=== PATIENT | male | born 1970 | race Caucasian/White ===

== ENCOUNTER 2018-03-07 13:48 | Emergency (ER) | payer SELFPAY ==
[2018-03-07] MEDS ORDERED: Sodium Chloride 0.9% 1,000 ML IV ONE (14:00)
[2018-03-07] MEDS ORDERED: Sodium Chloride 0.9% 10 ML Syringe FLUSH PRN (14:00)
[2018-03-07] MEDS ORDERED: Sodium Chloride 0.9% 2.5 ML Syringe FLUSH PRN (14:00)
[2018-03-07] MEDS ORDERED: Ketorolac 30 MG/ML SDV IVPUSH ONE (15:32)
--- NOTE | 2018-03-07 16:05 | CT ---
CT of the abdomen and pelvis without contrast. HISTORY: Hematuria TECHNIQUE: Axial CT images were obtained of the abdomen and pelvis without contrast. Coronal and sagi ttal reconstructions obtained. FINDINGS: The lung bases are clear, no pleural effusion. The liver, spleen, adrenal glands, and pancreas appear unremarkable for noncontrast examination. The gallbladder appears normal. There is no bulky retroperitoneal lymphadenopathy. No abdominal ascites. There is a 2 mm obstructing stone at the right ureterovesicular junction with mild proximal hydroneph rosis and perirenal stranding. There is a 2.3 cm left renal nodule posteriorly. The large and small bowel are normal in caliber without evidence of obstruction. Appendectomy. There is no bulky pelvic lymphadenopathy. No free fluid. No free air. The urinary bladder appears normal. 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 Degenerative changes within the hips. IMPRESSION: 1. There is a 2 mm obstructing stone within the right ureteropelvic junction with mild proximal hydro nephrosis. 2. Mildly hyperdense 2.3 cm left renal nodule. Possibly a hyperdense cyst, correlation with a postcon trast CT or ultrasound may be beneficial.
--- NOTE | 2018-03-07 16:31 | EDM.PDOC ---
ED HPI GENERAL MEDICAL PROBLEM - General Chief Complaint: Abdominal Pain Stated Complaint: ABDOMINAL PAIN Time Seen by Provider: 03/07/18 14:00 Source of Information: Reports: Patient History Limitations: Reports: No Limitations - History of Present Illness INITIAL COMMENTS - FREE TEXT/NARRATIVE: History of present illness: []Patient's head 2 days of right upper abdominal pain that is intermittent and sharp is not had any vomiting, fevers or chills. His urine is noted to be dark and he thinks it started 2 days ago. Patient has had an appendicitis but he has his gallbladder. Review of systems: As per history of present illness and below otherwise all systems reviewed and negative. Past medical history: As per history of present illness and as reviewed below otherwise noncontributory. Surgical history: As per history of present illness and as reviewed below otherwise noncontributory. Social history: No reported history of drug or alcohol abuse. Family history: As per history of present illness and as reviewed below otherwise noncontributory. Physical exam: General: Well developed, well nourished in NAD HEENT: Atraumatic, normocephalic, pupils reactive, negative for conjunctival pallor or scleral icterus, mucous membranes moist, throat clear, neck supple, nontender, trachea midline. Lungs: Clear to auscultation, breath sounds equal bilaterally, chest nontender. Heart: S1S2, regular, negative for clicks, rubs, or JVD. Abdomen: Soft, nondistended, nontender. Negative for masses or hepatosplenomegaly. Negative for costovertebral tenderness. Pelvis: Stable nontender. Genitourinary: Deferred. Rectal: Deferred. Extremities: Atraumatic, negative for cords or calf pain. Neurovascular unremarkable. Neuro: Awake, alert, oriented. Cranial nerves II through XII unremarkable. Cerebellum unremarkable. Motor and sensory unremarkable throughout. Exam nonfocal. Diagnostics: []CBC shows a white count elevated at 12,000 chemistries normal except BUN and creatinine is 28 1.5, UA shows too numerous to count RBCs, 8-10 white cells, CT scan shows 2 mm obstructing stone at the UPJ with mild proximal hydronephrosis, was also an incidental 2.3 cm left adrenal nodule is hyperdense follow-up suggested Therapeutics: []IV hydrated 1 L, Toradol with alleviation of pain Flomax given Impression: []Right Ureterolithiasis, UTI, left renal nodule Plan: []Flomax, tramadol, Cipro prescribed patients to follow-up with his primary doctor or urologist in [place] within a week or return to any ER if symptoms worsen or change Definitive disposition and diagnosis as appropriate pending reevaluation and review of above. abdominal Pain Score (Numeric/FACES): 8 - Related Data Allergies Allergy/AdvReac Type Severity Reaction Status Date / Time No Known Allergies Allergy Verified 03/07/18 14:03 Home Meds: Home Meds Ciprofloxacin HCl [Cipro] 500 mg PO BID #20 tablet 03/07/18 [Rx] Tamsulosin HCl [Flomax] 0.4 mg PO DAILY #14 cap.er.24h 03/07/18 [Rx] traMADol HCl [Tramadol HCl] 50 mg PO Q6H PRN #16 tablet 03/07/18 [Rx] Past Medical History HEENT History: Reports: None Cardiovascular History: Reports: None Respiratory History: Reports: None Gastrointestinal History: Reports: None Genitourinary History: Reports: None Musculoskeletal History: Reports: None Neurological History: Reports: None Psychiatric History: Reports: None Endocrine/Metabolic History: Reports: None Hematologic History: Reports: None Immunologic History: Reports: None Oncologic (Cancer) History: Reports: None Dermatologic History: Reports: None - Past Surgical History Head Surgeries/Procedures: Reports: None HEENT Surgical History: Reports: Eye Surgery Cardiovascular Surgical History: Reports: None Respiratory Surgical History: Reports: None GI Surgical History: Reports: Appendectomy Male Surgical History: Reports: None Endocrine Surgical History: Reports: None Neurological Surgical History: Reports: None Musculoskeletal Surgical History: Reports: None Oncologic Surgical History: Reports: None Dermatological Surgical History: Reports: None Social & Family History - Family History Family Medical History: Noncontributory - Tobacco Use Smoking Status *Q: Current Every Day Smoker Years of Tobacco use: 16 Packs/Tins Daily: 0.5 - Caffeine Use Caffeine Use: Reports: Soda - Recreational Drug Use Recreational Drug Use: No ED ROS GENERAL - Review of Systems Review Of Systems: See Below (See history of present illness) ED EXAM, GI/ABD - Physical Exam Exam: See Below (See history of present illness) Course - Vital Signs Last Recorded V/S: Last Vital Signs Temp 98.7 F 03/07/18 16:07 Pulse 70 03/07/18 16:07 Resp 16 03/07/18 16:07 BP 140/96 H 03/07/18 16:07 Pulse Ox 97 03/07/18 16:07 - Orders/Labs/Meds Orders: Active Orders 24 hr Category Date Time Status UA W/MICROSCOPIC [URIN] Stat Lab 03/07/18 14:08 Ordered Sodium Chloride 0.9% [Saline Flush] Med 03/07/18 14:00 Active 10 ml FLUSH ASDIRECTED PRN Sodium Chloride 0.9% [Saline Flush] Med 03/07/18 14:00 Active 2.5 ml FLUSH ASDIRECTED PRN Saline Lock Insert [OM.PC] Stat Oth 03/07/18 14:00 Ordered Medication Orders Sodium Chloride (Saline Flush) 10 ml FLUSH ASDIRECTED PRN PRN Reason: Keep Vein Open Sodium Chloride (Saline Flush) 2.5 ml FLUSH ASDIRECTED PRN PRN Reason: Keep Vein Open Labs: Laboratory Tests 03/07/18 03/07/18 03/07/18 Range/Units 14:08 14:15 14:15 WBC 12.52 H (4.0-11.0) K/uL RBC 5.21 (4.50-5.90) M/uL Hgb 15.4 (13.0-17.0) g/dL Hct 44.7 (38.0-50.0) % MCV 85.8 (80.0-98.0) fL MCH 29.6 (27.0-32.0) pg MCHC 34.5 (31.0-37.0) g/dL RDW Std Deviation 43.2 (28.0-62.0) fl RDW Coeff of Gini 14 (11.0-15.0) % Plt Count 260 (150-400) K/uL MPV 10.60 (7.40-12.00) fL Neut % (Auto) 74.7 (48.0-80.0) % Lymph % (Auto) 17.1 (16.0-40.0) % [place] % (Auto) 7.3 (0.0-15.0) % Eos % (Auto) 0.7 (0.0-7.0) % Baso % (Auto) 0.2 (0.0-1.5) % Neut # (Auto) 9.4 H (1.4-5.7) K/uL Lymph # (Auto) 2.1 (0.6-2.4) K/uL [place] # (Auto) 0.9 H (0.0-0.8) K/uL Eos # (Auto) 0.1 (0.0-0.7) K/uL Baso # (Auto) 0.0 (0.0-0.1) K/uL Nucleated RBC % 0.0 /100WBC Nucleated RBCs # 0 K/uL Sodium 139 (136-148) mmol/L Potassium 4.1 (3.5-5.1) mmol/L Chloride 102 (98-107) mmol/L Carbon Dioxide 26.5 (21.0-32.0) mmol/L BUN 28 H (7.0-18.0) mg/dL Creatinine 1.5 H (0.8-1.3) mg/dL Est Cr Clr Drug Dosing 64.84 mL/min Estimated GFR (MDRD) 50.2 ml/min Glucose 94 (74-106) mg/dL Calcium 9.1 (8.5-10.1) mg/dL Total Bilirubin 0.7 (0.2-1.0) mg/dL AST 16 (15-37) IU/L ALT 28 (14-63) IU/L Alkaline Phosphatase 97 (46-116) U/L Total Protein 7.2 (6.4-8.2) g/dL Albumin 3.7 (3.4-5.0) g/dL Globulin 3.5 (2.0-3.5) g/dL Albumin/Globulin Ratio 1.1 L (1.3-2.8) Lipase 247 (73-393) U/L Urine Color BROWN Urine Appearance CLOUDY Urine pH 7.0 (5.0-8.0) Ur Specific [place] 1.020 (1.001-1.035) Urine Protein 100 (NEGATIVE) mg/dL Urine Glucose (UA) NEGATIVE (NEGATIVE) mg/dL Urine Ketones NEGATIVE (NEGATIVE) mg/dL Urine Occult Blood LARGE H (NEGATIVE) Urine Nitrite NEGATIVE (NEGATIVE) Urine Bilirubin SMALL H (NEGATIVE) Urine Ictotest NEGATIVE Urine Urobilinogen 0.2 (<2.0) EU/dL Ur Leukocyte Esterase SMALL (NEGATIVE) Urine RBC TOO NUMEROUS TO CT (0-2/HPF) Urine WBC 8-10 (0-5/HPF) Ur Epithelial Cells FEW (NONE-FEW) Urine Bacteria 1+ H (NEGATIVE) Meds: Medications Generic Name Dose Route Start Last Admin Trade Name Freabdulkadir PRN Reason Stop Dose Admin Sodium Chloride 10 ml 03/07/18 14:00 Saline Flush FLUSH ASDIRECTED PRN Keep Vein Open Sodium Chloride 2.5 ml 03/07/18 14:00 Saline Flush FLUSH ASDIRECTED PRN Keep Vein Open Discontinued Medications Generic Name Dose Route Start Last Admin Trade Name Freabdulkadir PRN Reason Stop Dose Admin Sodium Chloride 1,000 mls @ 999 mls/hr 03/07/18 14:00 03/07/18 14:19 Normal Saline IV 03/07/18 15:00 999 mls/hr .Bolus ONE Administration Ketorolac Tromethamine 30 mg 03/07/18 15:32 03/07/18 16:04 Toradol IVPUSH 03/07/18 15:33 30 mg ONETIME ONE Administration Departure - Departure Time of Disposition: 16:41 Disposition: Home, Self-Care 01 Condition: Good Clinical Impression: Ureterolithiasis, Nodule of kidney - Discharge Information Prescriptions: Ciprofloxacin HCl [Cipro] 500 mg PO BID #20 tablet Tamsulosin HCl [Flomax] 0.4 mg PO DAILY #14 cap.er.24h traMADol HCl [Tramadol HCl] 50 mg PO Q6H PRN #16 tablet PRN Reason: Pain Referrals: PCP,None [Primary Care Provider] - Forms: ED Department Discharge Additional Instructions: The following information is given to patients seen in the emergency department who are being discharged to home. This information is to outline your options for follow-up care. We provide all patients seen in our emergency department with a follow-up referral. The need for follow-up, as well as the timing and circumstances, are variable depending upon the specifics of your emergency department visit. If you don't have a primary care physician on staff, we will provide you with a referral. We always advise you to contact your personal physician following an emergency department visit to inform them of the circumstance of the visit and for follow-up with them and/or the need for any referrals to a consulting specialist. The emergency department will also refer you to a specialist when appropriate. This referral assures that you have the opportunity for follow-up care with a specialist. All of these measure are taken in an effort to provide you with optimal care, which includes your follow-up. Under all circumstances we always encourage you to contact your private physician who remains a resource for coordinating your care. When calling for follow-up care, please make the office aware that this follow-up is from your recent emergency room visit. If for any reason you are refused follow-up, please contact the [facility] Emergency Department at and asked to speak to the emergency department charge nurse. Take Cipro, Flomax and tramadol as needed for pain increase fluids and follow- up with primary care or urology when you get to [place] return to ER if symptoms worsen or change. - My Orders Last 24 Hours: My Active Orders 03/07/18 14:00 Sodium Chloride 0.9% [Saline Flush] 10 ml FLUSH ASDIRECTED PRN Sodium Chloride 0.9% [Saline Flush] 2.5 ml FLUSH ASDIRECTED PRN Saline Lock Insert [OM.PC] Stat 03/07/18 14:08 UA W/MICROSCOPIC [URIN] Stat - Assessment/Plan Last 24 Hours: My Active Orders 03/07/18 14:00 Sodium Chloride 0.9% [Saline Flush] 10 ml FLUSH ASDIRECTED PRN Sodium Chloride 0.9% [Saline Flush] 2.5 ml FLUSH ASDIRECTED PRN Saline Lock Insert [OM.PC] Stat 03/07/18 14:08 UA W/MICROSCOPIC [URIN] Stat
== END 2018-03-07 17:05 | disposition home or self-care (01) ==
LOC: MW.ED 13:48
DX: N13.2 Hydronephrosis with renal and ureteral calculous obstruction (principal); N28.89 Other specified disorders of kidney and ureter; F17.210 Nicotine dependence, cigarettes, uncomplicated; Z79.899 Other long term (current) drug therapy
CPT/HCPCS: 36415; 74176; 80053; 81001; 83690; 85025; 96361; 96374; 99284; J1885; J7040

== ENCOUNTER 2021-07-12 23:30 | Emergency (ER) | payer SELFPAY ==
[2021-07-13 00:19] LABS: BLOOD UREA NITROGEN,BUN 21 mg/dL (7.0-18.0); CARBON DIOXIDE,CO2 25.9 mmol/L (21.0-32.0); CHLORIDE,CL 104 mmol/L (98-107); GLUCOSE RANDOM 174 mg/dL (74-106); POTASSIUM,K 3.7 mmol/L (3.5-5.1); SODIUM,NA 142 mmol/L (136-148)
--- NOTE | 2021-07-13 00:47 | CR ---
INDICATION: Shortness of breath. COMPARISON: None. TECHNIQUE: Single portable AP view of the chest. FINDINGS: There is severe hypoventilatory changes. Questionable bilateral patchy airspace disease. No pneumothorax or significant effusion. Cardiac silhouette is enlarged, likely accentuated by AP technique. No acute osseous findings. IMPRESSION: Severe hypoventilatory changes. Questionable bilateral patchy airspace disease, not optimally imaged. Dictated by Adonis Miranda MD @ 07/13/2021 12:46:43 AM Dictated by: Adonis Miranda MD @ 07/13/2021 00:46:53 (Electronically Signed)
[2021-07-13] MEDS ORDERED: Iopamidol 755 MG/ML 500 ML Multipack Bottle IVPUSH ONE (01:03)
--- NOTE | 2021-07-13 01:37 | CT ---
INDICATION: Shortness of breath and recent travel. TECHNIQUE: CT chest PE was acquired with 100 cc Isovue 370 intravenous contrast. COMPARISON: None. FINDINGS: Heart and vasculature: Inadequate opacification of the pulmonary artery. Examination is considered nondiagnostic. No proximal emboli seen. Thoracic aorta is normal in caliber with mild atherosclerotic calcification. No pericardial effusion. Lungs and pleural: No pleural effusion or pneumothorax. Minimal discoid atelectasis right middle lobe. Mild motion with slight soft tissue thickening around a left lower lobe posterior segment bronchus (402, 121). Lymph nodes/mediastinum: Left hilar lymph nodes measure up to 13 millimeters right infrahilar lymph nodes measures 12 millimeters. Subcarinal lymph nodes measure 11 millimeters. Chest wall: No masses. Upper abdomen: Normal. Bones: Unremarkable for age. IMPRESSION: 1. Nondiagnostic examination for the detection of pulmonary emboli secondary to inadequate opacification of the pulmonary vasculature. No proximal pulmonary embolus seen. 2. Mild mediastinal and hilar adenopathy. Differential is broad and includes infectious, inflammatory and neoplastic etiologies. 3. Minimal soft tissue thickening around a left lower lobe posterior segment bronchus. Suspect this represents either some bronchial wall thickening such as from bronchitis or alternatively a distal lymph node. Follow-up CT scan can be considered in 3 months to assess for resolution. Please note that all CT scans at this facility use dose modulation, iterative reconstruction, and/or weight-based dosing when appropriate to reduce radiation dose to as low as reasonably achievable. Dictated by Dorian Mcdaniel MD @ 07/13/2021 1:36:36 AM (Electronically Signed)
--- NOTE | 2021-07-13 01:44 | EDM.PDOC ---
ED HPI GENERAL MEDICAL PROBLEM - General Chief Complaint: Respiratory Problem Stated Complaint: LOW BP, SHORT OF BREATH, LIPS TURNING BLUE Time Seen by Provider: 07/12/21 23:36 - History of Present Illness INITIAL COMMENTS - FREE TEXT/NARRATIVE: CHIEF COMPLAINT(S): "Blood pressure was not right." HISTORY OF PRESENT ILLNESS: This is a 51-year-old man without any reported past medical history who comes to the emergency department with a chief complaint of "blood pressure was not right." The patient states that he was at home and states that his blood pressure was low. He states that his niece brought him into the emergency department. The niece who is at bedside provided the following history: She states that the patient was sitting there comfortably when he put his head down became cold, clammy and stated he was very diaphoretic and that his lips turned blue. She states that one of his family members is a RN and and they checked his blood pressure and it was 82/40. She states that since he is arrived from [place] he has appeared short of breath and had some labored breathing but other than that he has not complained everything. The patient states that he is not experiencing any chest pain, lower extremity edema, cough, fever or chills. He states that the only other abnormality is that for the last 6 months he has been having bright red vomiting blood every 2 to 3 days which resolves on its own. He states that he has not had this evaluated. He states that he did not have any vomiting of blood today. He states that his mother had esophageal cancer so he was afraid to come in for that. In addition he states that he has had some dyspnea after Covid which she has had in the past. He states that he does not know if he has been reexposed to Covid. He denies any history of aortic aneurysm. REVIEW OF SYSTEMS: Constitutional: Positive for diaphoresis. Denies fever, chills. Eyes: Denies eye pain Ears, Nose, Mouth, & Throat: Denies earache Cardiovascular: Positive for perioral cyanosis and low blood pressure. Denies chest pain Respiratory: Positive for shortness of breath Gastrointestinal: Positive for hematemesis. Denies abdominal pain, nausea, diarrhea, hematochezia, melena Genitourinary: Denies hematuria Skin:Denies a rash MSK: Denies joint pain Neurological: Denies blurred vision, numbness, tingling, weakness Psychiatric: Denies depression PAST MEDICAL HISTORY: As per history of present illness and as reviewed below otherwise noncontributory. SURGICAL HISTORY: As per history of present illness and as reviewed below otherwise noncontributory. SOCIAL HISTORY: As per history of present illness and as reviewed below otherwise noncontributory. FAMILY HISTORY: As per history of present illness and as reviewed below otherwise noncontributory. EXAMINATION OF ORGAN SYSTEMS/BODY AREAS: Constitutional: Blood pressure was 107/67, heart rate 96, respiratory rate 20 with an oxygen saturation 97% on room air. Temperature 36.3 General: Middle-aged man who does not appear to be in acute distress Psychiatric: Appropriate mood and affect. Eyes: No scleral icterus or conjunctival erythema conjunctivae is not pale. ENMT: Moist mucous membranes. No pharyngeal erythema Cardiovascular: Regular, rate, and rhythm. No gallops, murmurs, or rubs. Bilateral upper extremity pulses and lower extremity symmetric and intact. No peripheral edema. No JVD. Respiratory: Lungs clear to auscultation bilaterally. No wheezes, rales, or rhonchi. Gastrointestinal: Soft, non-tender, non-distended. Normoactive bowel sounds no rebound or guarding Genitourinary: No suprapubic tenderness Musculoskeletal: Normal range of motion. Skin: No lesions or abrasions. Neurological: Alert, GCS 15 MEDICAL DECISION MAKING AND COURSE IN THE ED WITH INTERPRETATION/REVIEW OF DIAGNOSTIC STUDIES: This is a 51-year-old and without any reported past medical history who comes to the emergency department with acute episode of diaphoresis with the patient did have perioral cyanosis which was reported in a brief hypotensive episode who has been experiencing labored breathing and reported bright red bloody emesis intermittently for the last 6 months. The patient is mildly tachycardic and given his dyspnea will obtain a CT angiogram of the chest to evaluate for pulmonary embolism. At this time it is hard to differentiate if this is hemoptysis or hematemesis. Either way the patient has not had any vomiting today. The patient does not look pale therefore I do not believe any blood transfusion is indicated. Given that this sounds sort of presyncopal we will obtain a cardiac work-up. EKG was obtained which did not reveal any acute signs of ischemia. Cardiac monitoring at this time did reveal sinus rhythm and pulse oximetry with good waveform was 94 to 95% on room air. DDx: ACS, pneumonia, pulmonary embolism, COVID-19 Laboratory: CBC is unremarkable. D-dimer is normal. BMP reveals elevated BUN at 21 and a creatinine of 1.9. Hyperglycemia at 174. Hypermagnesemia at 2.5. AST ALT and total bilirubin are normal. First troponin is negative. The radiological images were viewed by myself along with reading the report from the radiologist. Chest x-ray reveals severe hypoventilatory changes. Questionable bilateral patchy airspace disease not optimal imaging. CT angiogram of the chest is nondiagnostic exam however there is no proximal pulmonary embolism. There is mild mediastinal and hilar adenopathy. There is minimal soft tissue thickening around the left lower lobe posterior segment bronchus. Suspect this represents either some bronchial wall thickening such as from bronchitis or distal lymph node. After labs and initial imaging I did reevaluate the patient. The patient's vitals continue to remain normal and the patient was acting appropriately. I did discuss that we would like to obtain a repeat troponin. He was amenable to this plan. We did obtain a pre and post void residual given the elevated BUN and creatinine. There was no evidence of obstruction. Laboratory: Repeat troponin is negative. After repeat troponin I did discuss results with the patient. At this time I do believe the patient requires multiple follow-up visits. I did discuss the importance of following up with general surgery for endoscopy and colonoscopy given his reported vomiting of blood. The patient's hemoglobin is normal I do not believe any emergent work-up is needed. In addition I did discuss that he should follow-up with cardiology as the explanation of his episode today did sound presyncopal. Even though the patient does not have any chest pain the patient is still low risk given his age and without any risk factors known. In addition I would like him to follow-up with a primary care physician. He was amenable to this plan. I did discuss strict return precautions with the patient. He was amenable to discharge and had no further questions. Heart Score History: Moderately Suspicious (1) ECG: Normal (0) Age: 45-64 (1) Risk Factors: No known risk factors (0) Initial Troponin: </= normal limit (0) Total Score: 2 DISPOSITION: The patient was discharged home in stable condition. The patient will follow up with cardiology, general surgery and primary care physician CONDITION: Fair PROCEDURES: Cardiac monitoring interpretation, pulse oximetry interpretation FINAL IMPRESSION(S)/DIAGNOSES: 1. Acute on chronic hematemesis 2. Acute presyncope Anthony Laboy M.D. - Related Data Allergies Allergy/AdvReac Type Severity Reaction Status Date / Time No Known Allergies Allergy Verified 07/12/21 23:43 Home Meds: Home Meds . [No Known Home Meds] 07/12/21 [History] Past Medical History HEENT History: Reports: None Cardiovascular History: Reports: None Respiratory History: Reports: None Gastrointestinal History: Reports: None Genitourinary History: Reports: None Musculoskeletal History: Reports: None Neurological History: Reports: None Psychiatric History: Reports: None Endocrine/Metabolic History: Reports: None Hematologic History: Reports: None Immunologic History: Reports: None Oncologic (Cancer) History: Reports: None Dermatologic History: Reports: None - Past Surgical History Head Surgeries/Procedures: Reports: None HEENT Surgical History: Reports: Eye Surgery Cardiovascular Surgical History: Reports: None Respiratory Surgical History: Reports: None GI Surgical History: Reports: Appendectomy Male Surgical History: Reports: None Endocrine Surgical History: Reports: None Neurological Surgical History: Reports: None Musculoskeletal Surgical History: Reports: None Oncologic Surgical History: Reports: None Dermatological Surgical History: Reports: None Social & Family History - Family History Family Medical History: No Pertinent Family History - Caffeine Use Caffeine Use: Reports: Soda - Recreational Drug Use Recreational Drug Use: No ED ROS GENERAL - Review of Systems Review Of Systems: See Below ED EXAM, GENERAL - Physical Exam Exam: See Below Course - Vital Signs Last Recorded V/S: Last Vital Signs Temp 36.3 C 07/12/21 23:39 Pulse 82 07/13/21 05:00 Resp 18 07/13/21 05:00 BP 132/64 07/13/21 05:00 Pulse Ox 95 07/13/21 05:00 - Orders/Labs/Meds Labs: Laboratory Tests 07/12/21 07/12/21 07/12/21 Range/Units 00:01 23:52 23:52 WBC 8.70 (4.0-11.0) K/uL RBC 4.91 (4.50-5.90) M/uL Hgb 14.8 (13.0-17.0) g/dL Hct 43.9 (38.0-50.0) % MCV 89.4 (80.0-98.0) fL MCH 30.1 (27.0-32.0) pg MCHC 33.7 (31.0-37.0) g/dL RDW Std Deviation 49.2 (28.0-62.0) fl RDW Coeff of Gini 15 (11.0-15.0) % Plt Count 286 (150-400) K/uL MPV 10.80 (7.40-12.00) fL Neut % (Auto) 72.5 (48.0-80.0) % Lymph % (Auto) 17.2 (16.0-40.0) % Dickens % (Auto) 7.6 (0.0-15.0) % Eos % (Auto) 2.5 (0.0-7.0) % Baso % (Auto) 0.2 (0.0-1.5) % Neut # (Auto) 6.3 H (1.4-5.7) K/uL Lymph # (Auto) 1.5 (0.6-2.4) K/uL Dickens # (Auto) 0.7 (0.0-0.8) K/uL Eos # (Auto) 0.2 (0.0-0.7) K/uL Baso # (Auto) 0.0 (0.0-0.1) K/uL Nucleated RBC % 0.0 /100WBC Nucleated RBCs # 0 K/uL D-Dimer, Quantitative 0.31 (0.0-0.50) mg/L FEU Sodium (136-148) mmol/L Potassium (3.5-5.1) mmol/L Chloride (98-107) mmol/L Carbon Dioxide (21.0-32.0) mmol/L BUN (7.0-18.0) mg/dL Creatinine (0.8-1.3) mg/dL Est Cr Clr Drug Dosing mL/min Estimated GFR (MDRD) ml/min Glucose (74-106) mg/dL Calcium (8.5-10.1) mg/dL Magnesium (1.8-2.4) mg/dL Total Bilirubin 0.2 (0.2-1.0) mg/dL AST 15 (15-37) IU/L ALT 22 (14-63) IU/L Troponin I (0.000-0.056) ng/mL 07/12/21 07/13/21 Range/Units 23:52 04:15 WBC (4.0-11.0) K/uL RBC (4.50-5.90) M/uL Hgb (13.0-17.0) g/dL Hct (38.0-50.0) % MCV (80.0-98.0) fL MCH (27.0-32.0) pg MCHC (31.0-37.0) g/dL RDW Std Deviation (28.0-62.0) fl RDW Coeff of Gini (11.0-15.0) % Plt Count (150-400) K/uL MPV (7.40-12.00) fL Neut % (Auto) (48.0-80.0) % Lymph % (Auto) (16.0-40.0) % Dickens % (Auto) (0.0-15.0) % Eos % (Auto) (0.0-7.0) % Baso % (Auto) (0.0-1.5) % Neut # (Auto) (1.4-5.7) K/uL Lymph # (Auto) (0.6-2.4) K/uL Dickens # (Auto) (0.0-0.8) K/uL Eos # (Auto) (0.0-0.7) K/uL Baso # (Auto) (0.0-0.1) K/uL Nucleated RBC % /100WBC Nucleated RBCs # K/uL D-Dimer, Quantitative (0.0-0.50) mg/L FEU Sodium 142 (136-148) mmol/L Potassium 3.7 (3.5-5.1) mmol/L Chloride 104 (98-107) mmol/L Carbon Dioxide 25.9 (21.0-32.0) mmol/L BUN 21 H (7.0-18.0) mg/dL Creatinine 1.9 H (0.8-1.3) mg/dL Est Cr Clr Drug Dosing 48.99 mL/min Estimated GFR (MDRD) 37.6 ml/min Glucose 174 H (74-106) mg/dL Calcium 9.2 (8.5-10.1) mg/dL Magnesium 2.5 H (1.8-2.4) mg/dL Total Bilirubin (0.2-1.0) mg/dL AST (15-37) IU/L ALT (14-63) IU/L Troponin I < 0.050 < 0.050 (0.000-0.056) ng/mL Meds: Medications Discontinued Medications Generic Name Dose Route Start Last Admin Trade Name Omar PRN Reason Stop Dose Admin Lactated Ringer's 1,000 mls @ 999 mls/hr 07/13/21 01:45 07/13/21 01:46 Ringers, Lactated IV 999 mls/hr ASDIRECTED KIKO Administration Iopamidol 100 ml 07/13/21 01:03 07/13/21 01:05 Iopamidol 755 Mg/Ml 500 Ml Multipack Bottle IVPUSH 07/13/21 01:04 100 ml ONETIME ONE Administration Nicotine 21 mg 07/13/21 02:25 07/13/21 02:30 Nicotine 21 Mg/24 Hr Patch TRDERM 07/13/21 02:26 21 mg ONETIME ONE Administration Departure - Departure Time of Disposition: 04:43 Disposition: Home, Self-Care 01 Condition: Fair Clinical Impression: Vomiting of blood, Pre-syncope, Lymphadenopathy - Discharge Information *PRESCRIPTION DRUG MONITORING PROGRAM REVIEWED*: No *COPY OF PRESCRIPTION DRUG MONITORING REPORT IN PATIENT JENNIFER: No Instructions: Hematemesis, Near-Syncope Referrals: [facility] [Provider Group] Josué Ramírez MD [Physician] - PCP,None [Primary Care Provider] - Forms: ED Department Discharge Additional Instructions: You were evaluated today on an emergent basis. At this time all of your work-up was normal. As discussed there are enlarged lymph nodes on your CT of your chest. This is nonspecific. Given the episode this evening it is uncertain as to what caused this however I do recommend that you follow-up with multiple different people. First and foremost I would like you to follow-up with general surgery given the intermittent vomiting of blood to obtain a endoscopy and colonoscopy. Secondly I would like you to follow-up with a general neurologist given your presyncopal episodes. If you have any worsening chest pain, feel like you are in a passout I would like you to return to the emergency department. Thirdly given that you have just moved. Like you to set a primary care physician so that they can monitor you and do further work-up. All numbers are provided below. [facility] [address] [place] [address] [facility] [address] [place] [address] [facility][Note 3] - General Surgery Professional Building [address], [address] [place] [address] The patient is informed of any results of their evaluation and diagnostic workup and all questions are answered. They are given discharge instructions and return precautions. The patient is stable for discharge. The patient states they understand and agree with the plan and that they will return if their symptoms get worse or if they have any new concerns. The following information is given to patients seen in the emergency department who are being discharged to home. This information is to outline your options for follow-up care. We provide all patients seen in our emergency department with a follow-up referral. The need for follow-up, as well as the timing and circumstances, are variable depending upon the specifics of your emergency department visit. If you don't have a primary care physician on staff, we will provide you with a referral. We always advise you to contact your personal physician following an emergency department visit to inform them of the circumstance of the visit and for follow-up with them and/or the need for any referrals to a consulting specialist. The emergency department will also refer you to a specialist when appropriate. This referral assures that you have the opportunity for follow-up care with a specialist. All of these measure are taken in an effort to provide you with optimal care, which includes your follow-up. Under all circumstances we always encourage you to contact your private physician who remains a resource for coordinating your care. When calling for follow-up care, please make the office aware that this follow-up is from your recent emergency room visit. If for any reason you are refused follow-up, please contact the Emergency Department at and asked to speak to the emergency department charge nurse. Sepsis Event Note (ED) - Evaluation Sepsis Screening Result: No Definite Risk - Focused Exam Vital Signs: Vital Signs Temp Pulse Resp BP Pulse Ox 07/13/21 05:00 82 18 132/64 95 07/13/21 03:41 95 18 127/72 95 07/13/21 00:00 98 20 106/65 94 L 07/12/21 23:39 36.3 C 96 20 107/67 97
[2021-07-13] MEDS ORDERED: Lactated Ringers 1,000 ML IV SCH (01:45)
--- NOTE | 2021-07-13 01:45 | PCM.EKG ---
#1 Interpretation EKG Date: 07/12/21 Time: 23:32 Rhythm: NSR Rate (Beats/Min): 99 [place]: LAD-Left [place] Deviation P-Wave: Present QRS: Normal ST-T: Normal QT: Normal Comparison: NA - No Prior EKG EKG Interpretation Comments: Sinus Rhythm
[2021-07-13] MEDS ORDERED: Nicotine 21 MG/24 Hr Patch TRDERM ONE (02:25)
== END 2021-07-13 04:59 | disposition home or self-care (01) ==
LOC: MW.ED 23:30
DX: K92.0 Hematemesis (principal); R55 Syncope and collapse; R59.1 Generalized enlarged lymph nodes
CPT/HCPCS: 36415; 71045; 71275; 80048; 82247; 83735; 84450; 84460; 84484; 85025; 85379; 93005; 99284; A9270; J7120; Q9967